=== PATIENT | female | born 1970 | race Caucasian/White ===

== ENCOUNTER 2023-11-20 10:31 | Emergency (ER) | payer SELFPAY ==
[2023-11-20 11:24] LABS: BASOPHILS ABSOLUTE AUTO 0.1 x10^3/uL (0.0-0.2); BASOPHILS PERCENT AUTO 0.7 % (0.2-1.2); EOSINOPHILS ABSOLUTE AUTO 0.1 x10^3/uL (0.0-0.5); EOSINOPHILS PERCENT AUTO 1.9 % (0.0-4.0); HEMATOCRIT 43.2 % (33.0-47.0); IMMATURE GRAN ABSOLUTE AUTO 0.01 x10^3/uL (0.00-0.07); LYMPHOCYTES ABSOLUTE AUTO 2.1 x10^3/uL (1.0-4.8); LYMPHOCYTES PERCENT AUTO 28.2 % (25.0-50.0); MEAN CORPUSCULAR HEMOGLOBIN 28.2 pg (26.0-32.0); MEAN CORPUSCULAR HGB CONC 32.4 g/dL (32.0-36.0); MEAN CORPUSCULAR VOLUME 86.9 fL (78.0-93.0); MONOCYTES ABSOLUTE AUTO 0.4 x10^3/uL (0.0-0.8); MONOCYTES PERCENT AUTO 5.6 % (2.0-11.0); NEUTROPHILS ABSOLUTE AUTO 4.7 x10^3/uL (1.8-7.7); NEUTROPHILS PERCENT AUTO 63.5 % (50.0-80.0); PLATELET COUNT,PLT 225 x10^3/uL (130-400); RED BLOOD CELL COUNT 4.97 x10^6/uL (4.00-5.50); WHITE BLOOD CELL COUNT,WBC 7.4 x10^3/uL (4.0-10.0)
[2023-11-20] MEDS: Ondansetron 4 MG/2 ML SDV IVPUSH ONE (11:41)
[2023-11-20 11:53] LABS: A/G RATIO 1.18; ALANINE AMINOTRANSFERASE,ALT 18 U/L (14-59); ALKALINE PHOSPHATASE 80 U/L (46-116); ASPARTATE AMNIOTRANSFERASE,AST 19 U/L (15-37); BILIRUBIN TOTAL 0.3 mg/dL (0.2-1.0); BLOOD UREA NITROGEN,BUN 14 mg/dL (7-18); CALCIUM 8.9 mg/dL (8.5-10.1); CARBON DIOXIDE,CO2 23 mmol/L (21-32); CHLORIDE,CL 106 mmol/L (98-107); CREATININE 0.9 mg/dL (0.55-1.02); ETHANOL BLOOD MEDICAL 121 mg/dL (0-3); GLUCOSE RANDOM 97 mg/dL (70-99); POTASSIUM,K 3.2 mmol/L (3.5-5.1); PROTEIN TOTAL,TP 7.4 g/dL (6.4-8.2); SODIUM,NA 145 mmol/L (136-145); TSH ULTRASENSITIVE 1.418 uIU/mL (0.358-3.74)
[2023-11-20 11:57] LABS: ANION GAP 19.2 mmol/L (5-15); ESTIMATED GFR 77 mL/min (>=60)
[2023-11-20 12:10] LABS: ACETAMINOPHEN 0 ug/ml (10-30)
[2023-11-20 14:36] LABS: AMPHETAMINES SCREEN, URINE NEGATIVE (NEGATIVE); BARBITURATE SCREEN,URINE NEGATIVE (NEGATIVE); BENZODIAZEPINES SCREEN,URINE NEGATIVE (NEGATIVE); BUPRENORPHINE SCREEN,URINE NEGATIVE (NEGATIVE); COCAINE METABOLITES,URINE NEGATIVE (NEGATIVE); METHADONE SCREEN, URINE NEGATIVE (NEGATIVE); METHAMPHETAMINE SCREEN, URINE NEGATIVE (NEGATIVE); OXYCODONE SCREEN,URINE NEGATIVE (NEGATIVE); PCP SCREEN,URINE NEGATIVE (NEGATIVE); THC SCREEN,URINE 50 NG/ML POSITIVE (NEGATIVE)
[2023-11-20] MEDS: Haloperidol Lactate 5 MG/ML SDV IM ONE (21:44)
[2023-11-20] MEDS: diphenhydrAMINE 50 MG/ML SDV IM ONE (21:44)
[2023-11-20] MEDS: LORazepam 2 MG/ML SDV IM ONE (21:44)
== END 2023-11-20 16:26 | disposition short-term general hospital (02) ==
LOC: VM.ED 10:31
DX: T43.012A Poisoning by tricyclic antidepressants, intentional self-harm, initial encounter (principal); T43.592A Poisoning by other antipsychotics and neuroleptics, intentional self-harm, initial encounter; Z79.899 Other long term (current) drug therapy; Z90.49 Acquired absence of other specified parts of digestive tract
CPT/HCPCS: 36415; 80053; 80143; 80179; 80305-QW; 80307; 84443; 85025; 93010; 96374; 99284; 99285-25; J2405

== ENCOUNTER 2024-09-03 11:36 | Emergency (ER) | payer OTHER ==
[2024-09-03] MEDS ORDERED: Sodium Chloride 0.9% 10 ML Syringe FLUSH PRN (11:42)
[2024-09-03 11:59] LABS: BASOPHILS PERCENT AUTO 0.3 % (0.2-1.2); EOSINOPHILS ABSOLUTE AUTO 0.2 x10^3/uL (0.0-0.5); EOSINOPHILS PERCENT AUTO 2.3 % (0.0-4.0); IMMATURE GRAN ABSOLUTE AUTO 0.01 x10^3/uL (0.00-0.07); LYMPHOCYTES ABSOLUTE AUTO 2.4 x10^3/uL (1.0-4.8); LYMPHOCYTES PERCENT AUTO 36.2 % (25.0-50.0); MEAN CORPUSCULAR HEMOGLOBIN 27.9 pg (26.0-32.0); MEAN CORPUSCULAR HGB CONC 31.8 g/dL (32.0-36.0); MEAN CORPUSCULAR VOLUME 87.6 fL (78.0-93.0); MONOCYTES ABSOLUTE AUTO 0.4 x10^3/uL (0.0-0.8); MONOCYTES PERCENT AUTO 6.8 % (2.0-11.0); NEUTROPHILS ABSOLUTE AUTO 3.5 x10^3/uL (1.8-7.7); NEUTROPHILS PERCENT AUTO 54.2 % (50.0-80.0); PLATELET COUNT,PLT 167 x10^3/uL (130-400); RED BLOOD CELL COUNT 5.02 x10^6/uL (4.00-5.50); WHITE BLOOD CELL COUNT,WBC 6.5 x10^3/uL (4.0-10.0)
[2024-09-03 12:16] LABS: ALANINE AMINOTRANSFERASE,ALT 23 U/L (14-59); ALBUMIN 3.6 g/dL (3.4-5.0); ALKALINE PHOSPHATASE 89 U/L (46-116); ASPARTATE AMNIOTRANSFERASE,AST 23 U/L (15-37); BILIRUBIN TOTAL 0.4 mg/dL (0.2-1.0); BLOOD UREA NITROGEN,BUN 12 mg/dL (7-18); CARBON DIOXIDE,CO2 28 mmol/L (21-32); CHLORIDE,CL 103 mmol/L (98-107); CREATINE KINASE,CK 122 U/L (26-192); CREATININE 0.9 mg/dL (0.55-1.02); GLUCOSE RANDOM 91 mg/dL (70-99); POTASSIUM,K 4.2 mmol/L (3.5-5.1); PROTEIN TOTAL,TP 7.2 g/dL (6.4-8.2); SODIUM,NA 141 mmol/L (136-145)
[2024-09-03 12:18] LABS: ANION GAP 14.2 mmol/L (5-15); ESTIMATED GFR 77 mL/min (>=60)
== END 2024-09-03 12:57 | disposition home or self-care (01) ==
LOC: VM.ED 11:36
DX: R07.89 Other chest pain (principal); F41.9 Anxiety disorder, unspecified; Z79.899 Other long term (current) drug therapy; Z90.710 Acquired absence of both cervix and uterus
CPT/HCPCS: 36415; 71045; 80053; 82550; 84484; 85025; 93010; 99284; 99285